=== PATIENT | female | born 2005 | race Caucasian/White ===

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

== ENCOUNTER → 2024-04-30 11:26 | Outpatient (BNVA) | payer OTHER, SELFPAY | PROVIDERS: Family Provider Family Medicine; PCP Family Medicine; Referring Provider Nurse Practitioner Family; Visit Provider Nurse Practitioner Women's Health | DX: R30.0 Dysuria (principal) | CPT/HCPCS: 84315; 87086 ==

== ENCOUNTER → 2024-06-20 08:35 | Outpatient (BNVA) | payer OTHER, SELFPAY | PROVIDERS: Family Provider Family Medicine; PCP Family Medicine; Visit Provider Nurse Practitioner Women's Health | DX: N91.2 Amenorrhea, unspecified (principal); R30.0 Dysuria; Z32.01 Encounter for pregnancy test, result positive | CPT/HCPCS: 81025; 84315; 84443; 84702; 86850; 86900 ==

== ENCOUNTER → 2024-06-28 11:21 | Outpatient (BNVA) | payer OTHER, SELFPAY | PROVIDERS: Family Provider Family Medicine; PCP Family Medicine; Visit Provider Nurse Practitioner Women's Health | DX: Z34.91 Encounter for supervision of normal pregnancy, unspecified, first trimester (principal); Z3A.08 8 weeks gestation of pregnancy | CPT/HCPCS: 76801 ==

== ENCOUNTER → 2024-07-18 09:12 | Outpatient (BNVA) | payer OTHER, SELFPAY | PROVIDERS: Family Provider Family Medicine; PCP Family Medicine; Visit Provider Nurse Practitioner Women's Health | DX: O21.9 Vomiting of pregnancy, unspecified (principal); Z34.90 Encounter for supervision of normal pregnancy, unspecified, unspecified trimester | CPT/HCPCS: 80053; 80307; 84315; 84439; 84443; 84481; 85025; 86592; 86762; 86803; 86850; 86900; 87086; 87340; 87491; 87591; 87661; 87806 ==

== ENCOUNTER → 2024-07-27 13:49 | Outpatient (BNVA) | payer OTHER, SELFPAY | PROVIDERS: Family Provider Family Medicine; PCP Family Medicine; Visit Provider Obstetrics & Gynecology | DX: Z34.90 Encounter for supervision of normal pregnancy, unspecified, unspecified trimester (principal) | CPT/HCPCS: 84315 ==

== ENCOUNTER → 2024-08-17 15:57 | Outpatient (BNVA) | payer SELFPAY | PROVIDERS: Family Provider Family Medicine; PCP Family Medicine; Visit Provider Obstetrics & Gynecology | DX: Z34.92 Encounter for supervision of normal pregnancy, unspecified, second trimester (principal) | CPT/HCPCS: 84315 ==

== ENCOUNTER → 2024-09-13 13:01 | Outpatient (BNVA) | payer SELFPAY | PROVIDERS: Family Provider Family Medicine; PCP Family Medicine; Visit Provider Obstetrics & Gynecology | DX: O26.892 Other specified pregnancy related conditions, second trimester (principal); Z3A.19 19 weeks gestation of pregnancy | CPT/HCPCS: 76805 ==

== ENCOUNTER → 2024-09-28 13:16 | Outpatient (BNVA) | payer SELFPAY | PROVIDERS: Family Provider Family Medicine; PCP Family Medicine; Visit Provider Obstetrics & Gynecology | DX: Z34.90 Encounter for supervision of normal pregnancy, unspecified, unspecified trimester (principal) | CPT/HCPCS: 81000 ==

== ENCOUNTER 2024-10-10 10:06 | Outpatient (CLI) | payer SELFPAY ==
[2024-10-10 10:06] VITALS: BMI 27.9
[2024-10-10 10:26] VITALS: TEMP 36.2
[2024-10-10 10:42] VITALS: BP 115/66; PULSE 79
[2024-10-10 10:58] VITALS: BP 115/65; PULSE 79
[2024-10-10 11:02] LABS: Bacteria Urine 4+ /hpf; Hyaline Casts Urine 1.65 /lpf; RBC Urine 0-2 /hpf (0-2); Squamous Epithelial Cell Urine 51-100 /hpf (0-5); WBC Urine 21-50 /hpf (0-5)
[2024-10-10 11:13] VITALS: BP 114/62; PULSE 76
[2024-10-10 11:14] LABS: Bilirubin Urine Neg (Negative); Blood Urine Neg (Negative); Glucose Urine UA Norm (Normal); Ketones Urine Negative (Negative); Leukocyte Esterase Urine 2+ (Negative); Nitrate Urine Negative (Negative); Protein Urine Neg (Negative); Specific Gravity, Urine 1.015 (1.005-1.030); UA Slide Review UA Slide Review Perf; Urine Appearance Cloudy (CLEAR); Urine Color Yellow (Yellow); Urobilinogen Urine Norm (Negative); pH Urine 7 (5-7)
[2024-10-10 11:15] LABS: Add Urine Culture? Yes; Amorphous Sediment Urine TRACE /hpf
[2024-10-10 11:27] VITALS: BP 105/58; PULSE 73
== END 2024-10-10 11:39 | disposition home or self-care (01) ==
LOC: OPOB 10:06 → OBGYN 10:07
PROVIDERS: Family Provider Family Medicine; PCP Family Medicine; Visit Provider Obstetrics & Gynecology
DX: O26.899 Other specified pregnancy related conditions, unspecified trimester (principal); Z3A.00 Weeks of gestation of pregnancy not specified; R42 Dizziness and giddiness
CPT/HCPCS: 81001; 87086; 99211

== ENCOUNTER → 2024-10-17 08:21 | Outpatient (BNVA) | payer SELFPAY | PROVIDERS: Family Provider Family Medicine; PCP Family Medicine; Visit Provider Nurse Practitioner Women's Health | DX: O26.891 Other specified pregnancy related conditions, first trimester (principal); Z3A.11 11 weeks gestation of pregnancy | CPT/HCPCS: 84315; 87086 ==

== ENCOUNTER → 2024-11-08 07:33 | Outpatient (BNVA) | payer SELFPAY | PROVIDERS: Family Provider Family Medicine; PCP Family Medicine; Visit Provider Obstetrics & Gynecology | DX: Z34.90 Encounter for supervision of normal pregnancy, unspecified, unspecified trimester (principal) | CPT/HCPCS: 82950; 84315; 85025 ==

== ENCOUNTER → 2024-11-26 10:56 | Outpatient (BNVA) | payer SELFPAY | PROVIDERS: Family Provider Family Medicine; PCP Family Medicine; Visit Provider Obstetrics & Gynecology | DX: Z34.00 Encounter for supervision of normal first pregnancy, unspecified trimester (principal) | CPT/HCPCS: 84315 ==

== ENCOUNTER → 2024-12-06 07:58 | Outpatient (BNVA) | payer SELFPAY | PROVIDERS: Family Provider Family Medicine; PCP Family Medicine; Visit Provider Obstetrics & Gynecology | DX: Z36.9 Encounter for antenatal screening, unspecified (principal) | CPT/HCPCS: 76816 ==

== ENCOUNTER → 2024-12-26 11:34 | Outpatient (BNVA) | payer SELFPAY | PROVIDERS: Family Provider Family Medicine; PCP Family Medicine; Visit Provider Nurse Practitioner Women's Health | DX: Z34.90 Encounter for supervision of normal pregnancy, unspecified, unspecified trimester (principal); E03.9 Hypothyroidism, unspecified | CPT/HCPCS: 84315; 84443 ==

== ENCOUNTER → 2025-01-17 10:24 | Outpatient (BNVA) | payer SELFPAY | PROVIDERS: Family Provider Family Medicine; PCP Family Medicine; Visit Provider Obstetrics & Gynecology | DX: O99.820 Streptococcus B carrier state complicating pregnancy (principal) | CPT/HCPCS: 84315 ==

== ENCOUNTER → 2025-01-24 10:00 | Outpatient (BNVA) | payer SELFPAY | PROVIDERS: Family Provider Family Medicine; PCP Family Medicine; Visit Provider Obstetrics & Gynecology | DX: O99.820 Streptococcus B carrier state complicating pregnancy (principal) | CPT/HCPCS: 84315 ==

== ENCOUNTER → 2025-01-31 09:38 | Outpatient (BNVA) | payer SELFPAY | PROVIDERS: Family Provider Family Medicine; PCP Family Medicine; Visit Provider Obstetrics & Gynecology | DX: O99.820 Streptococcus B carrier state complicating pregnancy (principal) | CPT/HCPCS: 84315 ==

== ENCOUNTER 2025-02-01 01:41 | Outpatient (CLI) | payer SELFPAY ==
[2025-02-01 01:41] VITALS: BMI 32.5
[2025-02-01 02:02] VITALS: BP 122/76; PULSE 97
[2025-02-01 02:22] VITALS: BP 123/67; PULSE 82
[2025-02-01 02:40] VITALS: BP 123/67; PULSE 82; RESP 16; O2SAT 98
== END 2025-02-01 02:42 | disposition home or self-care (01) ==
LOC: OPOB 01:47 → OBGYN 01:47
PROVIDERS: Family Provider Family Medicine; PCP Family Medicine; Visit Provider Obstetrics & Gynecology
DX: O26.899 Other specified pregnancy related conditions, unspecified trimester (principal); Z3A.00 Weeks of gestation of pregnancy not specified; R10.9 Unspecified abdominal pain
CPT/HCPCS: 59025; 99211

== ENCOUNTER 2025-02-04 07:01 | Inpatient (IN) | payer SELFPAY ==
[2025-02-04] VITALS (62 sets, daily range): BP systolic 104–180; BP diastolic 54–146; PULSE 60–160; RESP 16; O2SAT 86–100; BMI 32.9
[2025-02-04] MEDS: ondansetron 2 mg/ML SDV 2 mL 4 MG IVP (08:23)
--- NOTE | 2025-02-04 08:35 | PM.OBGYHP ---
Providers/Chief Complaint Admitting Physician: Jarrett Montaño MD Primary RANGE MANAGEMENT SPECIALIST: Jarrett Montaño MD Primary Care Provider: SISSY Perez Chief Complaint: IOL HPI RANGE MANAGEMENT SPECIALIST History of Present Illness Nohemi Queen is a 19 year old female G1 EDC January 31, 2025 At 40 w 4 d No complications Admitted for induction of labor No c/o + active movements Present Details : 1 Para: 0 Labs Rubella: Immune RPR: Negative GBS: Positive Medications/Allergies Home Medications ?Medication ?Instructions ?Recorded ?Confirmed ?Last Taken ?Type levothyroxine 75 mcg capsule 75 mcg PO DAILY #30 caps 06/21/24 02/01/25 Unknown Rx iegozsxt-cds-Zu-FA 1 mg 1 tab PO DAILY 02/01/25 02/01/25 Unknown History tablet Allergies Allergy/AdvReac Type Severity Reaction Status Date / Time No Known Allergies Allergy Verified 01/31/25 07:39 PFSH RANGE MANAGEMENT SPECIALIST PFSH: Family History Grandmother Breast cancer Thyroid disease Diabetes Mother Thyroid disease Sister Thyroid disease Denies family history of Colon cancer Ovarian cancer Heart disease Hypertension Uterine cancer Stroke Social History Smoking and tobacco/nicotine status: never used tobacco/nicotine Second hand smoke exposure: No Personal Safety: Do you feel safe at home: Yes Victim of physical abuse: No Victim of emotional abuse: No Victim of sexual abuse: No Would you like help information on resources?: No History History History 1 Term 0 0 Miscarriages/Ectopic 0 Living Children 0 Care JEANNIE Calculator Estimated Delivery Date Method Current WG Current Estimate 01/31/25 LMP (Certain) 40w 4d Other Estimates 02/01/25 Ultrasound #1 40w 3d Specific Issues/Plans SUPERVISION OF FIRST NORMAL NAUSEA AND VOMITING IN : doing better, take promethazine as needed <del>HIVES</del> <del>OF</del> <del>FACE</del> <del>AND</del> <del>NECK:</del> <del>started</del> <del>07/16/24</del> <del>noticed</del> <del>hives</del> <del>and</del> <del>swelling</del> <del>of</del> <del>face</del> <del>and</del> <del>neck,</del> <del>does</del> <del>not</del> <del>recall</del> <del>introduction</del> <del>of</del> <del>new</del> <del>foods,</del> <del>medications,</del> <del>or</del> <del>soaps.</del> <del>Used</del> <del>benadryl</del> <del>OTC</del> <del>for</del> <del>treatment</del> HYPOTHYROIDISM: 06/20/24 TSH 8.08, currently on 75 mcg of levothyroxine, 07/18/24 3.62 UTI IN : Nitrates + in office on 06/20/24, treated with augmentin, 07/18/24 culture neg GBS + CARRIER IN URINE: Plan for antibiotics during labor Vitals/I&O/Wt Last Vital Signs Pulse 109 H 02/04/25 17:17 Resp 16 02/04/25 17:13 BP 152/88 02/04/25 17:17 O2 Del Method Room Air 02/04/25 07:37 Weight last 48 hrs Weight 198 lb Physical Exam Narrative: Weight 185 lbs; 5?5? VS normal General comfortable, awake, alert Lungs clear Cor RRR Abd nontender FH 37 cm, cephalic Cervix closed / long / -4 Ext: no edema External monitor: heart tracing good variability, + accelerations Data 02/04/25 08:25 Results Labs OB ([facility]): Obstetrics US 12/06/24 Blood Type AB Positive Today Antibody Screen Negative Today Hct, (36-47) 31.7 % L Today Hgb, (12.4-14.8) 10.30 g/dL L Today Rho(D) Type Rh positive Today Plt Count, (157-399) 340 10^3/cmm Today Hep Bs Antigen, (Nonreactive) Non-reactive 07/18/24 Hepatitis C Antibody, (Nonreactive) Non-reactive 07/18/24 Rubella IgG Antibody, (0.0-10.0) 122.7 IU/mL H 07/18/24 RPR, (Nonreactive) Nonreactive 07/18/24 HIV 1&2 Ab & HIV 1 Ag, (Non-Reactiv) Non-reactive 07/18/24 TSH, (0.27-4.20) 4.37 uIU/mL H 12/26/24 Free T4, (0.82-1.77) 1.27 ng/dL 07/18/24 Glucose 1 Hr 50 gm, (85-140) 76 mg/dL L 11/08/24 Ser , Semi-Qnt 89567.00 mIU/mL 06/20/24 HCG, Qual, (Negative) Positive H 06/20/24 Urine Opiates Screen, (Negative) Negative ng/mL 07/18/24 Ur Barbiturates Screen, (Negative) Negative ng/mL 07/18/24 Ur Phencyclidine Scrn, (Negative) Negative ng/mL 07/18/24 Ur Amphetamines Screen, (Negative) Negative ng/mL 07/18/24 U Benzodiazepines Scrn, (Negative) Negative ng/mL 07/18/24 Urine Cocaine Screen, (Negative) Negative ng/mL 07/18/24 U Marijuana (THC) Screen, (Negative) Negative ng/mL 07/18/24 Micro Urine Specimen 10/17/24 A&P Assessment and plan 1. : 40 w 4 d Fetus reassuring Admitted for induction of labor 2. Group B streptococcal carriage complicating : urine cultures done October 10 and October 18, 2024 were + for GBS Plan Abx during labor PDMP PDMP Reviewed: Not Reviewed Attestations Medical Necessity Statement*: patient at 40 w 4 d, admitted for induction of labor Coding Level of Care Code Acute Code for Chg Fwd Diagnoses Z34.90 Group B streptococcal carriage complicating O99.820
--- NOTE | 2025-02-04 08:35 | P.HP_ITS ---
Providers/Chief Complaint 2 Admitting Physician: Jarrett Montaño MD Primary METAL MACHINIST: Jarrett Montaño MD Primary Care Provider: SISSY Perez Chief Complaint: IOL HPI METAL MACHINIST History of Present Illness Nohemi Queen is a 19 year old female G1 EDC January 31, 2025 At 40 w 4 d No complications Admitted for induction of labor No c/o + active movements Present Details : 1 Para: 0 Labs Rubella: Immune RPR: Negative GBS: Positive Medications/Allergies Home Medications ?Medication ?Instructions ?Recorded ?Confirmed ?Last Taken ?Type levothyroxine 75 mcg capsule 75 mcg PO DAILY #30 caps 06/21/24 02/01/25 Unknown Rx evrlarby-wxo-Yt-FA 1 mg 1 tab PO DAILY 02/01/25 Unknown History tablet Allergies Allergy/AdvReac Type Severity Reaction Status Date / Time No Known Allergies Allergy Verified 01/31/25 07:39 PFSH METAL MACHINIST 2 PFSH: Family History Grandmother Breast cancer Thyroid disease Diabetes Mother Thyroid disease Sister Thyroid disease Denies family history of Colon cancer Ovarian cancer Heart disease Hypertension Uterine cancer Stroke Social History Smoking and tobacco/nicotine status: never used tobacco/nicotine Second hand smoke exposure: No Personal Safety: Do you feel safe at home: Yes Victim of physical abuse: No Victim of emotional abuse: No Victim of sexual abuse: No Would you like help information on resources?: No History History History 2 1 Term 0 0 Miscarriages/Ectopic 0 Living Children 0 Care JEANNIE Calculator 2 Estimated Delivery Date Method Current WG Current Estimate 01/31/25 LMP (Certain) 40w 4d Other Estimates 02/01/25 Ultrasound #1 40w 3d Specific Issues/Plans * SUPERVISION OF FIRST NORMAL * NAUSEA AND VOMITING IN : doing better, take promethazine as needed * -H--I-V-E-S- -O-F- -F-A-C-E- -A-N-D- -N-E-C-K-:- -s--j-d-g-t-e-d- -0-1-/-0-6-/-2-5- -c-b-m-i-c-e-d- -h-i-v-e-s- -a-n-d- -j-e-q-l-l-i-n-g- -o-f- -f-a-c-e- -a-n-d- -n-e-c-k-,- -d-o-e-s- -n-o-t- -l-j-i-a-l-l- -w-c-j-q-r-t-a-i-n-i-o-n- -o-f- -n-e-w- -f-o-o-d-s-,- -w-p-w-b-i-y-t-i-o-n-s-,- -o-r- -s-o-a-p-s-.- -U-s-e-d- -c-z-w-a-d-r-y-l- -O-T-C- -f-o-r- -z-f-o-r-h-x-e-n-t- * HYPOTHYROIDISM: 06/20/24 TSH 8.08, currently on 75 mcg of levothyroxine, 07/18/24 3.62 * UTI IN : Nitrates + in office on 06/20/24, treated with augmentin, 07/18/24 culture neg * GBS + CARRIER IN URINE: Plan for antibiotics during labor Vitals/I&O/Wt Last Vital Signs Pulse 109 H 02/04/25 17:17 Resp 16 02/04/25 17:13 BP 152/88 02/04/25 17:17 O2 Del Method Room Air 02/04/25 07:37 Weight last 48 hrs Weight 198 lb Physical Exam 2 Narrative: Weight 185 lbs; 5?5? VS normal General comfortable, awake, alert Lungs clear Cor RRR Abd nontender FH 37 cm, cephalic Cervix closed / long / -4 Ext: no edema External monitor: heart tracing good variability, + accelerations Data 02/04/25 08:25 Results Labs OB ([facility]): 2 Obstetrics 12/06/24 Blood Type AB Positive Today Antibody Screen Negative Today Hct, (36-47) 31.7 % L Today Hgb, (12.4-14.8) 10.30 g/dL L Today Rho(D) Type Rh positive Today Plt Count, (157-399) 340 10^3/cmm Today Hep Bs Antigen, (Nonreactive) Non-reactive 07/18/24 Hepatitis C Antibody, (Nonreactive) Non-reactive 03/04 Rubella IgG Antibody, (0.0-10.0) 122.7 IU/mL H 5 RPR, (Nonreactive) Nonreactive 07/18/24 HIV 1&2 Ab & HIV 1 Ag, (Non-Reactiv) Non-reactive 03/04 TSH, (0.27-4.20) 4.37 uIU/mL H 12/26/24 Free T4, (0.82-1.77) 1.27 ng/dL 07/18/24 Glucose 1 Hr 50 gm, (85-140) 76 mg/dL L 11/08/24 Ser , Semi-Qnt 29990.00 mIU/mL 06/20/24 HCG, Qual, (Negative) Positive H 06/20/24 Urine Opiates Screen, (Negative) Negative ng/mL 5 Ur Barbiturates Screen, (Negative) Negative ng/mL 07/18 Ur Phencyclidine Scrn, (Negative) Negative ng/mL Ur Amphetamines Screen, (Negative) Negative ng/mL 07/18 U Benzodiazepines Scrn, (Negative) Negative ng/mL 07/18 Urine Cocaine Screen, (Negative) Negative ng/mL 5 U Marijuana (THC) Screen, (Negative) Negative ng/mL 03/04 Micro Urine Specimen 10/17/24 A&P Assessment and plan 1. : 40 w 4 d Fetus reassuring Admitted for induction of labor 2. Group B streptococcal carriage complicating : urine cultures done October 10 and October 18, 2024 were + for GBS Plan Abx during labor PDMP PDMP Reviewed: Not Reviewed Attestations 2 Medical Necessity Statement*: patient at 40 w 4 d, admitted for induction of labor Coding Level of Care Code Acute Code for Chg Fwd Diagnoses Z34.90 Group B streptococcal carriage complicating O99.820
[2025-02-04 08:42] LABS: Hematocrit 31.7 % (36-47); Hemoglobin 10.30 g/dL (12.4-14.8); Mean Corpuscular HGB Conc 32.5 g/dL (30-55); Mean Corpuscular Hemoglobin 26.5 pg (27-33); Mean Corpuscular Volume 81.7 fl (85-98); Nucleated Red Blood Cells % 0 %; Platelet Count 340 10^3/cmm (157-399); Red Blood Count 3.88 10^6/uL (3.85-5.65); White Blood Count 13.11 10^3/uL (4.5-13.0)
--- NOTE | 2025-02-04 14:45 | ANES.PREANE2 ---
Pre-Anesthetic Assessment Height/Weight: Height 1.65 m Weight 89.811 kg Pulse Resp BP O2 Del Method 77 16 104/57 Room Air 02/04/25 09:24 02/04/25 07:38 02/04/25 09:24 02/04/25 07:37 Epidural Familial anesthetic complications: None Was Beta Ramón taken within 24 hours: N/A Was Clonidine taken within 24 hours: N/A Last intake: 1300 Social No alcohol and No tobacco Exam alert, oriented x 3, clear to auscultation bilaterally and regular rate & rhythm Airway Submandibular: within normal limits Cervical ROM: within normal limits Mallampati: Class III Dentition: full (Perm retainer) History/ROS No significant history except as noted and No significant complaints Pulmonary None reported CV/HEM None reported None reported Hepatic None reported GI Gastroesophageal Reflux Disease (N/V during ) Metabolic Thyroid Disease Musc/skel None reported Neuropsych None reported Anesthetic Plan ASA status: 2 Anesthesia: Anesthesia Evaluation, General and Regional (specify below) (Epidural) Risk of > 500 ml blood loss (7ml/kg in children): Yes, adequate IV access and fluids planned Medications/Allergies Home Medications ?Medication ?Instructions ?Recorded ?Confirmed ?Last Taken ?Type levothyroxine 75 mcg capsule 75 mcg PO DAILY #30 caps 06/21/24 02/01/25 Unknown Rx kskvifyl-lfq-Cu-FA 1 mg 1 tab PO DAILY 02/01/25 02/01/25 Unknown History tablet Allergies Allergy/AdvReac Type Severity Reaction Status Date / Time No Known Allergies Allergy Verified 01/31/25 07:39 Current Medications Generic Name Dose Route Start Last Admin Trade Name Jwq PRN Reason Stop Dose Admin Misoprostol 25 mcg 02/04/25 07:45 02/04/25 14:12 Misoprostol 100 Mcg Tablet VAGINAL 02/04/25 15:46 25 mcg Q4H STORM Administration Ondansetron HCl 4 mg 02/04/25 07:37 02/04/25 08:23 Ondansetron 2 Mg/Ml Sdv 2 Ml IVP 4 mg Q4H PRN Administration NAUSEA AND VOMITING PFSH Anesthesia Family History Grandmother Breast cancer Thyroid disease Diabetes Mother Thyroid disease Sister Thyroid disease Denies family history of Colon cancer Ovarian cancer Heart disease Hypertension Uterine cancer Stroke Social History Smoking and tobacco/nicotine status: never used tobacco/nicotine Second hand smoke exposure: No Female Reproductive History : 1 Data Anesthesia 02/04/25 08:25 Short CBC 02/04/25 Range/Units 08:25 WBC 13.11 H (4.5-13.0) 10^3/uL Hgb 10.30 L (12.4-14.8) g/dL Hct 31.7 L (36-47) % MCV 81.7 L (85-98) fl Plt Count 340 (157-399) 10^3/cmm Neut % (Auto) 68.6 % Neut # (Auto) 9.00 H (1.8-8.0) 10^3/uL Blood Bank 02/04/25 08:25 Blood Type AB Positive Rho(D) Type Rh positive Antibody Screen Negative
[2025-02-04] MEDS: fentaNYL 50 mcg/mL INJ 2mL IVP (17:13)
[2025-02-04] MEDS: ampicillin 2,000 MG in sodium chloride 0.9% (plus) 50 ML 100 MG IV (17:55)
[2025-02-04] MEDS: ROPivacaine syringe 100 MG/50 ML SYRINGE 10 MG EPIDURAL ×3 (17:55→23:28)
--- NOTE | 2025-02-04 18:10 | ANES.PROC ---
Anesthesia Procedures Procedure/Date: 02/04/25 Epidural: Time Out Performed: Yes Consents Signed: Procedure Consent and NPO Consent Consent: requested by attending/covering physician, from patient, risks and benefits reviewed and patient agrees to proceed Lumbar Level: L3-L4 Epidural position: sitting Epidural procedure: sterile prep of area (betadine), 1% lidocaine to numb the area (3 mLs), neg for paresthesia, test dose given, 1.5% xylocaine 1:200k epi (3 mLs/ 2 mLs), placed PCEA, no systemic response, sterile dressing applied, L.U.D. no apparent complications and 0.2% Ropiavacaine @ mls/hr (13) Additional Comments: OXANA 4.5 cm, catheter threaded to 11cm. Negative aspiration for blood or CSF. Patient tolerated well. GROCERY CHECKER button within reach and education provided for use. 1900: Patient complains of numbness to breasts. No abnormal signs or changes noted. Epidural infusion decreased to 10 mL/hr.
[2025-02-04] MEDS: ampicillin 1,000 MG in sodium chloride 0.9% (plus) 50 ML 100 MG IV (21:30)
--- NOTE | 2025-02-04 21:51 | P.PN_ITS ---
FERN GATHERER Subjective 2 Labor: Pain Control: epidural Dilation (cm): 4 Station: -3 A mniotic Membrane Status: Ruptured Monitor Mode: Palpation Contraction Frequency: 3 Contraction Pattern: Regular Contraction Intensity: Moderate Vitals/I&O/Wt Last Vital Signs Pulse 67 02/04/25 21:43 Resp 16 02/04/25 17:13 BP 180/146 02/04/25 21:43 Pulse Ox 92 02/04/25 20:01 O2 Del Method Room Air 02/04/25 07:37 02/04/25 02/04/25 02/04/25 06:59 14:59 22:59 Intake Total 1100 / 1100 Balance 1100 / 1100 Weight last 48 hrs Weight 198 lb Physical Exam 2 Resp: COMMON NORMALS: normal respiratory effort Cardio: COMMON NORMALS: regular rate and regular rhythm RATE: regular rate RHYTHM: regular rhythm GI: COMMON NORMALS: non-tender : MANUAL OB EXAM: dilated 4 cm, effaced (95) and station high (-3) A MNIOTIC FLUID: Meconium-stained amniotic fluid present (light) Urinary Catheter Management: Webber: Cath Placed During This Visit: yes Reason for Continuing Indwelling Catheter: Required Immobilization for Trauma or Surgery or Anesthesia Urinary Catheter Date of Insertion: 02/04/25 Urinary Catheter Time of Insertion: 18:45 Data 02/04/25 08:25 A&P Assessment and plan 1. Group B streptococcal carriage complicating : Ab prophylaxis 2. Postmaturity , 40-42 weeks gestation: Plan: Induction of labor with variable heart rate decelerations of over 40 weeks on a young undergoing induction initially with misoprostol. Cervical dilation now 4 cm. Amniotomy performed and light meconium noted. Variable decelerations had begun occurring more often with closely spaced (1min)contractions. Reassuring response to scalp stimulation. Will hold augmentation at this time and continue and maternal monitoring during labor. Will observe labor progress now with contraction pattern more predictable less closer together and with no variables. GBS positive receiving antibiotic prophylaxis, ampicillin. Patient provided instructions. Patient receiving 75 mcg daily of thyroxine for hypothyroidism. PDMP PDMP Reviewed: Not Reviewed Attestations 2 Medical Necessity Statement*: In summary, in-patient admission and treatment is medically necessary to effectively address the patient?s health condition and improve their overall well-being. Coding Level of Care Code Acute Code for Chg Fwd Diagnoses Group B streptococcal carriage complicating O99.820 Postmaturity , 40-42 weeks gestation O48.0
[2025-02-05] VITALS (21 sets, daily range): BP systolic 115–164; BP diastolic 61–79; PULSE 73–116; RESP 15–16; TEMP 36.6–37.1; O2SAT 97–99
[2025-02-05] MEDS: oxytocin 30 UNIT/500 ML BAG 600 UNIT IV (01:45)
[2025-02-05] MEDS: lidocaine 2% INJ 20 mL INJECTION (01:52)
[2025-02-05] MEDS: HYDROcodone-acetaminophen 5-325 mg Tablet PO ×3 (07:37→19:37)
[2025-02-05] MEDS: benzocaine-menthol 78 gm Canister 1 SPRAY TOPICAL (07:37)
--- NOTE | 2025-02-05 08:13 | PM.DELIVERY ---
Delivery Note: Date of delivery: February 05, 2025 Pre-delivery diagnoses: 40 wk GBS carrier Hypothyroidsm Post-delivery diagnoses: Same Procedure: Vacuum assisted vag delivery Delivering Physician: Estimated blood loss (mL): 350 Findings: BG weight ~6lbs 3/9 Delivery: Patient is a 19year-old , admitted at +40 weeks gestation for labor induction. Labor had progressed well, with cervical dilation reaching 10 cm and the head descending to +2 station. Variable decelerations noted so pitocin augmentation was stopped. Cervix progressed to 10 cm dilation, 100% effaced, and head at +2/(3) when pushing efforts started. Patient had received an epidural early in labor. There were some variable decelerations and bradycardia noted during the pushing stage, so a vacuum-assisted delivery was discussed and consented to. The vacuum cup was applied, and after 2 pulls (last was pop off), the head delivered. The rest of the body followed without difficulty. The baby is a healthy female, weighing 6 lbs 4 oz, with scores of 3 at 1 minute and 9 at 5 minutes. The placenta was delivered spontaneously and intact. The patient tolerated the procedure well and is currently stable in the recovery room. Perineal/vaginal repair of 3a laceration with 3-0 vicryl x3 performed without complication. Single suture placed on the external anal sphincter muscle. Rectal exam performed post repair x2 and normal. Uterine tone adequate with minimal uterine bleeding post delivery. Estimated blood loss was 350 mL. Sponge and needle count correct x 3. Post-Delivery Status: Both mom and stable History History History 1 Term 0 0 Miscarriages/Ectopic 0 Living Children 0 A&P Assessment and plan 1. Vaginal delivery: 2. Delivery of first by vacuum extraction: 3. Third degree laceration of perineum, type 3a: 4. Group B streptococcal carriage complicating : 5. Hypothyroidism: Plan: Vacuum-assisted vaginal delivery after 40 weeks with 3 a vaginal laceration requiring repair. Vaginal laceration repair without complications. Ambulate with assistance initially then as tolerated. Regular diet as tolerated. Ibuprofen 600 mg p.o. every 6 hours as needed, acetaminophen 650 mg p.o. every 4-6 hours as needed. Hydrocodone/acetaminophen 5/325 mg p.o. every 4 hours as needed for severe pain. Ice packs to perineum for the first 24 hours then sitz bath 2-3 times daily. Topical anesthetic spray as needed if needed. Assessment of fundus firmness and lochia every 8 hours or per unit protocol. Encourage frequent voiding. Hypothyroidsm prepregnancy: decrease dose of T4 to 2/3 of current third trimester dose and fup thyroid function at 6wk pp visit. Stool softener docusate sodium 100 mg p.o. daily. Discontinue IV fluids if stable and tolerating oral intake. PDMP PDMP Reviewed: Not Reviewed Coding Level of Care Code Acute Code for Chg Fwd Diagnoses Vaginal delivery O80 Delivery of first by vacuum extraction O75.9 Third degree laceration of perineum, type 3a O70.21 Group B streptococcal carriage complicating O99.820 Hypothyroidism E03.9
[2025-02-05] MEDS: PRENATAL VIT NO.130/IRON/FOLIC 1 EACH TABLET PO (09:32)
[2025-02-05 15:12] LABS: Hematocrit 24.8 % (36-47); Hemoglobin 8.00 g/dL (12.4-14.8); Mean Corpuscular HGB Conc 32.3 g/dL (30-55); Mean Corpuscular Hemoglobin 25.8 pg (27-33); Mean Corpuscular Volume 80.0 fl (85-98); Platelet Count 261 10^3/cmm (157-399); Red Blood Count 3.10 10^6/uL (3.85-5.65); White Blood Count 19.04 10^3/uL (4.5-13.0)
--- NOTE | 2025-02-05 18:04 | ANE.PACU2 ---
Inpatient post-anesthesia follow up: Airway intact: Yes Vital signs: Temperature 98.5 F Pulse Rate 97 Respiratory Rate 16 Blood Pressure 119/70 Pulse Oximetry 98 Oxygen Delivery Me thod Room Air Oxygen Flow Rate Fraction of Inspir ed Oxygen Hydration adequate: Yes Nausea and vomiting: No Pain level: 1 Mental status: Baseline Epidural Start/End: Epidural Start Date: 02/04/25 Epidural Start Time: 17:55 Epidural End Date: 02/05/25 Epidural End Time: 06:38
[2025-02-06 04:53] VITALS: BP 126/69; PULSE 90; RESP 15; TEMP 36.6; O2SAT 99
[2025-02-06] MEDS: HYDROcodone-acetaminophen 5-325 mg Tablet PO ×2 (06:46→11:57)
[2025-02-06] MEDS: PRENATAL VIT NO.130/IRON/FOLIC 1 EACH TABLET PO (09:29)
--- NOTE | 2025-02-06 11:50 | PM.OBGYDC ---
Discharge Providers STAFF COUNSELOR Date of Admission: 02/04/25 07:01 Date of Discharge: 02/06/25 Attending Provider at Admission: Jarrett Montaño MD Attending Provider at Discharge: Jarrett Montaño MD Consults: none Primary STAFF COUNSELOR: Jarrett Montaño MD Primary Care Provider: SISSY Perez Diagnoses at Discharge Discharge Diagnosis 1. Vaginal delivery: Details from hospital stay: 20 y.o. G1 at 40 w 4 d admitted for induction of labor patient progressed to complete dilatation fetus was reassuring throughout patient had vacuum-assisted vaginal delivery with repair of third-degree perineal laceration without any complications patient did well and was discharged to home on the first day 2. Delivery of first by vacuum extraction: 3. Third degree laceration of perineum, type 3a: 4. Group B streptococcal carriage complicating : 5. Hypothyroidism, unspecified type: Reason for Visit Reason for Visit: IOL Brief History: 20 y.o. G1 at 40 w 4 d admitted for induction of labor Hospital Course Hospital Course 20 y.o. G1 at 40 w 4 d admitted for induction of labor patient progressed to complete dilatation fetus was reassuring throughout patient had vacuum-assisted vaginal delivery with repair of third-degree perineal laceration without any complications patient did well and was discharged to home on the first day Information Peripartum Data: Infant Delivery Method: Vaginal Laceration description: Periurethral - 3rd Degree Episiotomy description: None complications: none Physical Exam Narrative: afebrile, VS normal comfortable, awake, alert Lungs: clear Cor: RRR Abd: soft, nontender. fundus firm Ext: no edema; nontender Urinary Catheter Management: Web[place]: Cath Placed During This Visit: yes, but has since been removed by the nurse Reason for Continuing Indwelling Catheter: Decision to DC Catheter Urinary Catheter Date of Insertion: 02/04/25 Urinary Catheter Time of Insertion: 18:45 Date Urinary Catheter Removed: 02/05/25 Time Urinary Catheter Discontinued: 01:00 History History History 1 Term 0 0 Miscarriages/Ectopic 0 Living Children 0 Discharge Data Studies Completed and Pending Laboratory Results WBC 19.04 10^3/uL (4.5-13.0) H 02/05/25 15:00 RBC 3.10 10^6/uL (3.85-5.65) L 02/05/25 15:00 Hgb 8.00 g/dL (12.4-14.8) L 02/05/25 15:00 Hct 24.8 % (36-47) L 02/05/25 15:00 MCV 80.0 fl (85-98) L 02/05/25 15:00 MCH 25.8 pg (27-33) L 02/05/25 15:00 MCHC 32.3 g/dL (30-55) 02/05/25 15:00 RDW 14.1 % (12.1-15.1) 02/05/25 15:00 Plt Count 261 10^3/cmm (157-399) 02/05/25 15:00 MPV 10.4 fL (7.4-10.4) 02/05/25 15:00 Neut % (Auto) 68.6 % 02/04/25 08:25 Lymph % (Auto) 20.7 % 02/04/25 08:25 [place] % (Auto) 9.2 % 02/04/25 08:25 Eos % (Auto) 0.5 % 02/04/25 08:25 Baso % (Auto) 0.3 % 02/04/25 08:25 Neut # (Auto) 9.00 10^3/uL (1.8-8.0) H 02/04/25 08:25 Lymph # (Auto) 2.7 10^3/uL (1.5-6.5) 02/04/25 08:25 [place] # (Auto) 1.2 10^3/uL (0.2-0.9) H 02/04/25 08:25 Eos # (Auto) 0.1 10^3/uL (0.0-0.8) 02/04/25 08:25 Baso # (Auto) 0.0 10^3/uL (0.0-0.1) 02/04/25 08:25 Nucleated RBC % (auto) 0 % 02/04/25 08:25 Nucleated RBCs # 0.0 /100WBC 02/04/25 08:25 Blood Type AB Positive 02/04/25 08:25 Rho(D) Type Rh positive 02/04/25 08:25 Antibody Screen Negative 02/04/25 08:25 Procedures Performed induction of labor vacuum-assisted vaginal delivery repair of third-degree perineal laceration Vitals Last Vital Signs Temp 98.5 F 02/06/25 14:00 Pulse 97 02/06/25 14:00 Resp 16 02/06/25 14:00 BP 119/70 02/06/25 14:00 Pulse Ox 98 02/06/25 14:00 O2 Del Method Room Air 02/06/25 04:53 Results Labs OB ([facility]): Obstetrics US 12/06/24 Blood Type AB Positive 02/04/25 Antibody Screen Negative 02/04/25 Hct, (36-47) 24.8 % L 02/05/25 Hgb, (12.4-14.8) 8.00 g/dL L 02/05/25 Rho(D) Type Rh positive 02/04/25 Plt Count, (157-399) 261 10^3/cmm 02/05/25 Hep Bs Antigen, (Nonreactive) Non-reactive 07/18/24 Hepatitis C Antibody, (Nonreactive) Non-reactive 07/18/24 Rubella IgG Antibody, (0.0-10.0) 122.7 IU/mL H 07/18/24 RPR, (Nonreactive) Nonreactive 07/18/24 HIV 1&2 Ab & HIV 1 Ag, (Non-Reactiv) Non-reactive 07/18/24 TSH, (0.27-4.20) 4.37 uIU/mL H 12/26/24 Free T4, (0.82-1.77) 1.27 ng/dL 07/18/24 Glucose 1 Hr 50 gm, (85-140) 76 mg/dL L 11/08/24 Ser , Semi-Qnt 71687.00 mIU/mL 06/20/24 HCG, Qual, (Negative) Positive H 06/20/24 Urine Opiates Screen, (Negative) Negative ng/mL 07/18/24 Ur Barbiturates Screen, (Negative) Negative ng/mL 07/18/24 Ur Phencyclidine Scrn, (Negative) Negative ng/mL 07/18/24 Ur Amphetamines Screen, (Negative) Negative ng/mL 07/18/24 U Benzodiazepines Scrn, (Negative) Negative ng/mL 07/18/24 Urine Cocaine Screen, (Negative) Negative ng/mL 07/18/24 U Marijuana (THC) Screen, (Negative) Negative ng/mL 07/18/24 Micro Urine Specimen 10/17/24 Discharge Plan Discharge Patient Disposition: Home Condition: Stable Prescriptions: New oxycodone-acetaminophen [Percocet] 5-325 mg tablet 1 tab PO BID PRN (Reason: pain) Qty: 14 0RF ferrous sulfate 325 mg (65 mg iron) tablet 325 mg PO DAILY Qty: 90 3RF Continued levothyroxine 75 mcg capsule 75 mcg PO DAILY Qty: 30 2RF Rx Instructions: take one capsule daily [id number] 1 mg Tablet 1 tab PO DAILY Discharge Order = DC NOW: Discharge Order (Routine); Ordered 02/06/25 Ordered By: Jarrett Montaño Referrals: Linnea Kerr NP [Nurse Practitioner, STAFF COUNSELOR] - 03/19/25 10:45 am Referral Note: Follow up appointment. Patient Instructions: Depression (DC), Opioid Safety (DC), Preeclampsia and Eclampsia After Delivery (GEN), Hemorrhage (DC), OB Discharge Report, OB Food/Drug Interaction Guide, Opioid Safety, OB Home Care, OB Vaginal Deliveries - [facility], Patient Portal & [facility] Instructions, Abnormal Bleeding Discharge Attestations STAFF COUNSELOR Time Spent in Discharge Care*: less than 30 min Coding Level of Care Code Acute Code for Chg Fwd Diagnoses Vaginal delivery O80 Delivery of first by vacuum extraction O75.9 Third degree laceration of perineum, type 3a O70.21 Group B streptococcal carriage complicating O99.820 Hypothyroidism, unspecified type E03.9 Hypothyroidism type: unspecified
[2025-02-06 14:00] VITALS: BP 119/70; PULSE 97; RESP 16; TEMP 36.9; O2SAT 98
[2025-02-07 12:36] LABS: High Risk PP Hemorrhage BBK Notified
== END 2025-02-06 14:20 | disposition home or self-care (01) | DRG 768 ==
LOC: OPOB 07:01 → OBGYN 07:01
PROVIDERS: Obstetrics & Gynecology; Admitting Provider Obstetrics & Gynecology; PCP Nurse Practitioner Family; Visit Provider Obstetrics & Gynecology
DX: O48.0 Post-term pregnancy (principal); Z37.0 Single live birth; O70.21 Third degree perineal laceration during delivery, IIIa; Z3A.40 40 weeks gestation of pregnancy; O99.824 Streptococcus B carrier state complicating childbirth; O99.284 Endocrine, nutritional and metabolic diseases complicating childbirth; E03.9 Hypothyroidism, unspecified; O76 Abnormality in fetal heart rate and rhythm complicating labor and delivery; O75.89 Other specified complications of labor and delivery; K21.9 Gastro-esophageal reflux disease without esophagitis
CPT/HCPCS: 12345; 36415; 51702; 59025; 59409; 85025; 85027; 86850; 86900; 96374; J0290; J2405; J2590; J2795; J3010; J7120; J7121; J9999

== ENCOUNTER → 2025-04-16 15:12 | Outpatient (BNVA) | payer MEDICAID, SELFPAY | PROVIDERS: PCP Nurse Practitioner Family; Visit Provider Nurse Practitioner Women's Health | DX: Z12.4 Encounter for screening for malignant neoplasm of cervix (principal) | CPT/HCPCS: 87624 ==